=== PATIENT | female | born 1985 | race Caucasian/White ===

== ENCOUNTER 2019-10-19 12:29 | Emergency (ER) | payer OTHER, SELFPAY ==
[2019-10-19] VITALS (7 sets, daily range): BP systolic 103–114; BP diastolic 57–68; PULSE 65–93; RESP 13–23; TEMP 36.9–37.1; O2SAT 97–100; BMI 26.6
--- NOTE | 2019-10-19 13:04 | DI.RAD.S_ITS ---
PROCEDURE: XR CHEST 1V INDICATIONS: chest pain TECHNIQUE: One view of the chest was acquired. COMPARISON: [facility], CT, CT HEAD/BRAIN WO CON, 10/19/2019, 14:15. FINDINGS: The right inferior costophrenic angle is not included within the field of view of this study. Surgical changes and devices: None. Lungs and pleura: Lungs are clear. No pleural effusions or pneumothorax. Mediastinum: Mediastinal contours appear normal. Heart size is normal. Bones and chest wall: No suspicious bony lesions. Overlying soft tissues appear unremarkable. IMPRESSION: No acute abnormality is seen. Dictated by: Chidi Aldrich M.D. on 10/19/2019 at 14:16 Approved by: Chidi Aldrich M.D. on 10/19/2019 at 14:17
[2019-10-19 13:47] LABS: Add Manual Diff / Slide Review NO; Basophils Absolute Auto 0 /uL (0-100); Basophils Percent Auto 0.4 % (0-2); Eosinophils Absolute Auto 0 /uL (0-450); Eosinophils Percent Auto 0.2 % (2-4); Hematocrit 37.8 % (36-46); Hemoglobin 12.7 g/dL (12.0-16.0); Lymphocytes Absolute Auto 900 /uL (1100-4500); Lymphocytes Percent Auto 8.4 % (25-40); Mean Corpuscular HGB Conc 33.6 % (30-36); Mean Corpuscular Hemoglobin 29.7 PG (26-34); Mean Corpuscular Volume 88.4 fL (80-100); Monocytes Absolute Auto 400 /uL (0-900); Monocytes Percent Auto 3.9 % (3-14); Neutrophils Absolute Auto 9700 /uL (1500-7000); Neutrophils Percent Auto 87.1 % (50-75); Platelet Count 190 X10^3/uL (150-400); Red Blood Cell Count 4.28 X10^6/uL (4.0-5.2); Red Cell Distribution Width 12.5 % (11.6-14.8); White Blood Cell Count 11.2 X10^3/uL (4.5-11.0)
[2019-10-19 13:55] LABS: INR 0.9 (0.9-1.3); Prothrombin Time 10.9 SECONDS (10.1-12.7)
--- NOTE | 2019-10-19 13:55 | ED.SYNCOPE ---
HPI - Syncope General Chief Complaint: Syncope Stated Complaint: Pulled Something in Lower Back, Blacked Out Time Seen by Provider: 10/19/19 13:21 Source: patient Mode of arrival: Family Vehicle Limitations: no limitations History of Present Illness HPI narrative: The patient had 2 syncopal episodes at home prior to arrival here. She injured her lumbar back last night, she was bending over to drawer when she injured the right lumbar area. When she awoke this morning, she felt the back tightness. She rolled out of bed due to the back pain. She went to the bathroom. She developed increasing back pain. She developed dizziness and unsteadiness. She had closing in of her vision. She felt weak. She thinks he almost passed out, not quite. She got to the bathroom floor. Her came to assist. She go back to the toilet. Similar symptoms happened, this time she did pass out. She was unconscious for about 30 seconds. Her describes some stiffness in the neck, but no diffuse seizure activity. She has no prior history of seizures. She has not recently been ill. She has a history of multiple syncopal episodes in the past. She has a prior history of syncope with a needlestick. She also passed out at school as a child 2 times with class material that she found a bit too much for her. Since then she has had childbirth x4 with . She is going through all this without syncope until today. She has no visual changes, mild headache, no confusion, no weakness or numbness. She is oriented, and asymptomatic you other than the back pain at the time of our visit. She has no cardiac problems. She has no diabetes. She is on medications for depression, she has no other essential medical problems. Related Data Home Medications Medication Instructions Recorded Confirmed clonazepam 0.5 mg PO PRN PRN 10/19/19 10/19/19 cyclobenzaprine 10 mg PO TID PRN 10/19/19 10/19/19 fluoxetine 20 mg PO DAILY 10/19/19 10/19/19 rizatriptan 5 mg PO PRN PRN 10/19/19 10/19/19 Previous Rx's Medication Instructions Recorded ibuprofen 600 mg PO Q6-8H PRN #40 tab 10/19/19 methocarbamol [Robaxin-750] 750 mg PO Q6H PRN #40 tab 10/19/19 Allergies Allergy/AdvReac Type Severity Reaction Status Date / Time methyldopa Allergy Intermediate Palpitation Verified 10/19/19 13:02 s Penicillins Allergy Intermediate Hives Verified 10/19/19 13:02 droperidol [From Inapsine] AdvReac Intermediate Muscle Pain Verified 10/19/19 13:02 Review of Systems Review of Systems ROS Unobtainable: All systems reviewed & are unremarkable except as noted in HPI and below Constitutional Constitutional: Denies chills, Denies fever(s), Denies lethargy and Denies weakness Eyes Eyes: Denies change in vision, Denies eye discharge and Denies loss of vision Comments: Visual deficits earlier as described in HPI. ENT Ears, Nose, Mouth, and Throat: Denies change in voice, Denies vertigo, Reports dizziness, Denies dry mouth, Denies neck pain and Denies sore throat Comments: No tongue injury Cardiovascular Cardiovascular: Denies chest pain, Denies irregular heart rhythm, Denies lightheadedness, Denies dyspnea, Denies dyspnea on exertion and Denies orthopnea Respiratory Respiratory: Denies cough, Denies dyspnea, Denies dyspnea on exertion and Denies wheezing Gastrointestinal Gastrointestinal: Denies abdominal pain, Denies change in bowel habits, Denies diarrhea, Denies nausea and Denies vomiting Musculoskeletal Musculoskeletal: Denies back pain, Denies arthralgias and Denies neck pain Integumentary/Breasts Skin/Breast: Denies pruritus, Denies erythema, Denies rash and Denies wounds Neurologic Neurologic: Denies vertigo, Reports dizziness, Denies loss of vision and Denies weakness Allergic/Immunologic Allergic/Immunologic: Denies wheezing Patient History Medical History (Updated 10/19/19 @ 16:43 by Chetan Miller MD) History of syncope (Acute) Social History Smoking Status: Never smoker Smoking Status: Never smoker alcohol intake frequency: 0-2 drinks per day Alcohol type: hard liquor Substance Use Type: does not use Exam Initial Vital Signs Initial Vital Signs: Vital Signs Temperature 98.8 F 10/19/19 12:47 Pulse Rate 93 H 10/19/19 12:47 Respiratory Rate 10/19/19 12:47 Blood Pressure 107/64 07/19/20 12:47 Pulse Oximetry 97 10/19/19 12:47 Const General: cooperative and well developed Nutritional Appearance: well nourished [facility] Head: normal to inspection and normocephalic Face and sinus: normal facial exam Mouth: oral mucosae normal, lip normal and tongue normal Throat: posterior oropharynx normal Eyes General: appearance normal, both eyes and all related structures Eyelids: eyelids normal Conjunctivae: conjunctivae normal Sclera: sclerae normal Pupils: PERRL EOM: EOM intact bilaterally Neck Neck: normal visual inspection, trachea midline, No lymphadenopathy, No midline deformity and No JVD Lymphatic: No lymphedema Chest Chest: normal inspection of the chest Resp Effort & Inspection: normal respiratory effort, able to speak in complete sentences, no respiratory distress and no use of accessory muscles Auscultation: clear to auscultation bilaterally, no rales, no rhonchi and no wheezes Cardio Rate: regular rate Rhythm: regular rhythm Heart Sounds: no click, no gallops, no murmurs and no rubs Pulses: normal peripheral pulses GI Inspection: non-distended Palpation: soft, no hepatosplenomegaly, No guarding, No pulsatile mass and No tender Auscultation: normal bowel sounds Back/Spine/Pelvis Back: normal to inspection and back tenderness (Right jhony lumbar region. No tenderness over the L or T-spine. No SI pain) Skin General: no rashes or lesions noted and No petechiae Neuro General: patient alert, patient oriented x3, gait normal and no focal motor deficits Speech: speech normal Extrem General: full ROM, no clubbing, cyanosis or edema, no pedal edema and no calf tenderness Course Course Course Narrative: The patient has been asymptomatic since arrival other than the back pain. The back pain has improved a Toradol. Evaluation of Radiology, EKG, and lab tests are reassuring. She will be discharged home with a diagnosis of vasovagal syncope as well as back pain. She was discharged on ibuprofen and Robaxin. Orders Ordered: ED Orders 10/19/19 12:53 EKG-12 Lead Stat 10/19/19 13:04 XR chest 1V Stat 10/19/19 13:25 Urine Drug Screen, Rapid Stat 10/19/19 13:40 Acetaminophen Stat Complete Blood Count AUTO DIFF Stat Comprehensive Metabolic Panel Stat Comprehensive Metabolic Panel Stat Ethanol (ETOH) Stat Free T4, Direct Thyroxine Stat Lipase Stat Partial Thromboplastin Time Stat Prothrombin Time INR Stat Salicylate Stat Thyroid Stimulating Hormone Stat Troponin & CK Cardiac Panel Stat 10/19/19 14:12 CT head/brain wo con Stat Discontinued Medications Ketorolac Tromethamine (Toradol) 30 mg IV NOW ONE Stop: 10/19/19 14:55 Last Admin: 10/19/19 15:30 Dose: 30 mg Documented by: NORMA Vital Signs Vital signs: Vital Signs - 8 hr 10/19/19 12:47 10/19/19 14:00 10/19/19 14:31 Temperature 98.8 F Pulse Rate 93 H 90 88 Respiratory Rate 20 16 23 Blood Pressure 107/64 114/68 Pulse Oximetry 97 99 98 MDM - Syncope Lab Data Result diagrams: 10/19/19 13:40 10/19/19 13:40 Labs: Lab Results 10/19/19 10/19/19 10/19/19 Range/Units 13:25 13:40 13:40 WBC 11.2 H (4.5-11.0) X10^3/uL RBC 4.28 (4.0-5.2) X10^6/uL Hgb 12.7 (12.0-16.0) g/dL Hct 37.8 (36-46) % MCV 88.4 (80-100) fL MCH 29.7 (26-34) PG MCHC 33.6 (30-36) % RDW 12.5 (11.6-14.8) % Plt Count 190 (150-400) X10^3/uL Neut % (Auto) 87.1 H (50-75) % Lymph % (Auto) 8.4 L (25-40) % [place] % (Auto) 3.9 (3-14) % Eos % (Auto) 0.2 L (2-4) % Baso % (Auto) 0.4 (0-2) % Neut # (Auto) 9700 H (4638-0768) /uL Lymph # (Auto) 900 L (8293-4887) /uL [place] # (Auto) 400 (0-900) /uL Eos # (Auto) 0 (0-450) /uL Baso # (Auto) 0 (0-100) /uL PT 10.9 (10.1-12.7) SECONDS INR 0.9 (0.9-1.3) APTT 27 (26.4-36.2) SECONDS Sodium (137-145) mmol/L Potassium (3.4-5.1) mmol/L Chloride (98-107) mmol/L Carbon Dioxide (22-32) mmol/L BUN (7-17) mg/dL Creatinine (0.52-1.04) mg/dL Estimated GFR (>60) mL/min BUN/Creatinine Ratio (6-22) Glucose (70-100) mg/dL Calcium (8.4-10.2) mg/dL Total Bilirubin (0.2-1.3) mg/dL AST (14-36) IU/L ALT (<35) IU/L Alkaline Phosphatase (38-126) U/L Total Creatine Kinase (30-135) U/L CK-MB (CK-2) CK-MB (CK-2) Rel Index Troponin I (0.01-0.034) ng/mL Total Protein (6.3-8.2) g/dL Albumin (3.5-5.0) g/dL Globulin (1.7-4.1) g/dL Albumin/Globulin Ratio (1.0-2.8) Lipase (23-300) U/L TSH (0.47-4.68) uIU/mL Free T4 (0.78-2.19) ng/dL Salicylates (<20) mg/dL U Opiates 300ng/mL cut Negative (Negative) Ur Oxycodone Screen Negative (Negative) Urine Methadone Screen Negative (Negative) Acetaminophen (10-30) ug/mL Ur Barbiturates Screen Negative (Negative) U Tricyclic Antidepress Positive H (Negative) Ur Phencyclidine Scrn Negative (Negative) Ur Amphetamines Screen Negative (Negative) U Methamphetamines Scrn Negative (Negative) Ur MDMA Scrn (Ecstasy) Negative (Negative) U Benzodiazepines Scrn Negative (Negative) Urine Cocaine Screen Negative (Negative) U Marijuana (THC) Screen Negative (Negative) Ethyl Alcohol ( - 10) mg/dL 10/19/19 10/19/19 10/19/19 Range/Units 13:40 13:40 13:40 WBC (4.5-11.0) X10^3/uL RBC (4.0-5.2) X10^6/uL Hgb (12.0-16.0) g/dL Hct (36-46) % MCV (80-100) fL MCH (26-34) PG MCHC (30-36) % RDW (11.6-14.8) % Plt Count (150-400) X10^3/uL Neut % (Auto) (50-75) % Lymph % (Auto) (25-40) % [place] % (Auto) (3-14) % Eos % (Auto) (2-4) % Baso % (Auto) (0-2) % Neut # (Auto) (8643-9399) /uL Lymph # (Auto) (1902-6639) /uL [place] # (Auto) (0-900) /uL Eos # (Auto) (0-450) /uL Baso # (Auto) (0-100) /uL PT (10.1-12.7) SECONDS INR (0.9-1.3) APTT (26.4-36.2) SECONDS Sodium 135 L 135 L (137-145) mmol/L Potassium 4.3 4.4 (3.4-5.1) mmol/L Chloride 103 105 (98-107) mmol/L Carbon Dioxide 25 21 L (22-32) mmol/L BUN 16 15 (7-17) mg/dL Creatinine 0.52 0.53 (0.52-1.04) mg/dL Estimated GFR > 60.0 > 60.0 (>60) mL/min BUN/Creatinine Ratio 30.8 H 28.3 H (6-22) Glucose 110 H 109 H (70-100) mg/dL Calcium 9.5 9.5 (8.4-10.2) mg/dL Total Bilirubin 0.5 0.5 (0.2-1.3) mg/dL AST 26 41 H (14-36) IU/L ALT 13 14 (<35) IU/L Alkaline Phosphatase 57 56 (38-126) U/L Total Creatine Kinase 38 (30-135) U/L CK-MB (CK-2) TNP CK-MB (CK-2) Rel Index TNP Troponin I < 0.012 (0.01-0.034) ng/mL Total Protein 6.7 6.7 (6.3-8.2) g/dL Albumin 4.1 4.1 (3.5-5.0) g/dL Globulin 2.6 2.6 (1.7-4.1) g/dL Albumin/Globulin Ratio 1.6 1.6 (1.0-2.8) Lipase 41 (23-300) U/L TSH 2.44 (0.47-4.68) uIU/mL Free T4 0.89 (0.78-2.19) ng/dL Salicylates < 1.0 (<20) mg/dL U Opiates 300ng/mL cut (Negative) Ur Oxycodone Screen (Negative) Urine Methadone Screen (Negative) Acetaminophen < 10 L (10-30) ug/mL Ur Barbiturates Screen (Negative) U Tricyclic Antidepress (Negative) Ur Phencyclidine Scrn (Negative) Ur Amphetamines Screen (Negative) U Methamphetamines Scrn (Negative) Ur MDMA Scrn (Ecstasy) (Negative) U Benzodiazepines Scrn (Negative) Urine Cocaine Screen (Negative) U Marijuana (THC) Screen (Negative) Ethyl Alcohol < 10 ( - 10) mg/dL Point of Care Testing Test Results Negative Urine Dip Bedside Urine Glucose Negative Bedside Urine Bilirubin - Negative Bedside Urine Ketone - Negative Urine Specific [place] 1.010 Bedside Urine Occult Blood - Negative Bedside Urine pH 8.0 Bedside Urine Protein - Negative Bedside Urine Urobilinogen - Negative Bedside Urine Nitrite - Negative Bedside Urine Leukocytes - Negative Esterase Imaging Data Chest x-ray: Radiologist's Impression: No acute findings CT scan - head: Radiologist's Impression: No acute findings. ECG Data Attestation: I personally reviewed and interpreted this ECG as follows: (Normal sinus rhythm rate 92 beats per minute. Normal intervals. No ectopy. No acute ST T wave changes. Normal study.) Discharge Plan Departure Patient Disposition: Home Clinical Impression: Vasovagal syncope Acute lumbar myofascial strain Qualifiers: Encounter type: initial encounter Qualified Code(s): S39.012A - Strain of muscle, fascia and tendon of lower back, initial encounter Instructions: Fainting, DI for Back Strain or Sprain Activity Restrictions/Additional Instructions: Ibuprofen 600 mg every 6 hours as needed for pain. Robaxin every 6 hours as needed for muscle spasm. Walk-in stress frequent. Work to loosen your back. Follow-up with your doctor if not improved in the next 2 weeks, return the ER as needed. Prescriptions: New ibuprofen 600 mg tablet 600 mg PO Q6-8H PRN (Reason: pain) Qty: 40 RF: 0 methocarbamol [Robaxin-750] 750 mg tablet 750 mg PO Q6H PRN (Reason: spasm) Qty: 40 RF: 0 No Action clonazepam 0.5 mg tablet 0.5 mg PO PRN PRN (Reason: Anxiety) RF: 0 fluoxetine 20 mg capsule 20 mg PO DAILY RF: 0 rizatriptan 5 mg Tablet 5 mg PO PRN PRN (Reason: Migraine Headache) RF: 0 cyclobenzaprine 10 mg Tablet 10 mg PO TID PRN (Reason: Spasms) RF: 0 Referrals: Savana Castañeda MD [Primary Care Provider] -
[2019-10-19 13:57] LABS: PTT Partial Thromboplastin Tim 27 SECONDS (26.4-36.2)
[2019-10-19 13:59] LABS: Alanine Aminotransferase 13 IU/L (<35); Albumin 4.1 g/dL (3.5-5.0); Albumin Globulin Ratio 1.6 (1.0-2.8); Alkaline Phosphatase 57 U/L (38-126); Aspartate Aminotransferase 26 IU/L (14-36); BUN Creatinine Ratio 30.8 (6-22); Bilirubin Total 0.5 mg/dL (0.2-1.3); Blood Urea Nitrogen 16 mg/dL (7-17); Calcium 9.5 mg/dL (8.4-10.2); Carbon Dioxide 25 mmol/L (22-32); Chloride 103 mmol/L (98-107); Creatine Kinase 38 U/L (30-135); Estimated Glomerular Filt Rate > 60.0 mL/min (>60); Globulin 2.6 g/dL (1.7-4.1); Glucose 110 mg/dL (70-100); HEMOLYSIS 16 (0-50); Lipase 41 U/L (23-300); Potassium 4.3 mmol/L (3.4-5.1); Sodium 135 mmol/L (137-145); Total Protein 6.7 g/dL (6.3-8.2)
[2019-10-19 14:10] LABS: Troponin I < 0.012 ng/mL (0.01-0.034)
--- NOTE | 2019-10-19 14:12 | DI.CT.S_ITS ---
PROCEDURE: CT HEAD/BRAIN WO CON INDICATIONS: Syncope TECHNIQUE: Noncontrast 4.5 mm thick angled axial sections acquired from the foramen magnum to the vertex, with coronal and sagittal reformats. For radiation dose reduction, the following was used: automated exposure control, adjustment of mA and/or kV according to patient size. COMPARISON: None. FINDINGS: Image quality: Excellent. CSF spaces: Basal cisterns are patent. No extra-axial fluid collections. Ventricles are normal in size and shape. Brain: No midline shift. No intracranial masses or hemorrhage. Bass-white matter interface is normal. Skull and face: Calvarium and visualized facial bones are intact, without suspicious lesions. Sinuses: Visualized sinuses and mastoids are clear. IMPRESSION: Negative head CT. No evidence of acute stroke, hemorrhage, or mass. Dictated by: Alejandro Quinn M.D. on 10/19/2019 at 14:44 Approved by: Alejandro Quinn M.D. on 10/19/2019 at 14:44
[2019-10-19] MEDS: KETOROLAC 60 MG/2 ML VIAL 30 MG IV (15:30)
[2019-10-19 15:44] LABS: UR Morphine/Opiate cutoff 300 Negative (Negative); Ur Creatinine Normal (Normal); Ur Specific Gravity Normal (Normal); Urine Amphetamines Negative (Negative); Urine Barbiturates Negative (Negative); Urine Benzodiazepines Negative (Negative); Urine Cocaine Negative (Negative); Urine MDMA Negative (Negative); Urine Methadone Negative (Negative); Urine Methamphetamines Negative (Negative); Urine Oxycodone Negative (Negative); Urine Phencyclidine Negative (Negative); Urine Tetrahydrocannabinol Negative (Negative); Urine Tricyclic Antidepressant Positive (Negative); Urine pH Normal (Normal)
[2019-10-19 15:54] LABS: Acetaminophen < 10 ug/mL (10-30); Alanine Aminotransferase 14 IU/L (<35); Albumin 4.1 g/dL (3.5-5.0); Albumin Globulin Ratio 1.6 (1.0-2.8); Alkaline Phosphatase 56 U/L (38-126); Aspartate Aminotransferase 41 IU/L (14-36); BUN Creatinine Ratio 28.3 (6-22); Bilirubin Total 0.5 mg/dL (0.2-1.3); Blood Urea Nitrogen 15 mg/dL (7-17); Calcium 9.5 mg/dL (8.4-10.2); Carbon Dioxide 21 mmol/L (22-32); Chloride 105 mmol/L (98-107); Estimated Glomerular Filt Rate > 60.0 mL/min (>60); Ethanol (ETOH) < 10 mg/dL; Globulin 2.6 g/dL (1.7-4.1); Glucose 109 mg/dL (70-100); HEMOLYSIS 21 (0-50); Potassium 4.4 mmol/L (3.4-5.1); Salicylate < 1.0 mg/dL (<20); Sodium 135 mmol/L (137-145); Total Protein 6.7 g/dL (6.3-8.2)
[2019-10-19 16:11] LABS: Free T4, Direct Thyroxine 0.89 ng/dL (0.78-2.19)
[2019-10-19 16:24] LABS: Thyroid Stimulating Hormone 2.44 uIU/mL (0.47-4.68)
== END 2019-10-19 17:06 | disposition home or self-care (01) ==
PROVIDERS: Emergency Provider Emergency Medicine; PCP Family Medicine
DX: R55 Syncope and collapse (principal); S39.012A Strain of muscle, fascia and tendon of lower back, initial encounter; R42 Dizziness and giddiness; W19.XXXA Unspecified fall, initial encounter
CPT/HCPCS: 36415; 70450; 71045; 80053; 80305; 80320; 80329; 81003; 81025; 82550; 83690; 84439; 84443; 84484; 85025; 85610; 85730; 93005; 96374; 99284; 99285; G0480; J1885